=== PATIENT | female | born 1970 | race African-American/Black ===

== ENCOUNTER 2020-02-27 07:12 | Day surgery (SDC) | payer BC ==
--- OUTSIDE RECORDS SUMMARY | 2020-02-27 07:19 | XMS REPORT | Clinical Summary ---
:1970 Author Organization [facility] Address [address] [place] [address] Care Team Providers Name Role Phone Unavailable Primary Care Provider Unavailable Allergies Active Allergy Reactions Severity Noted Date Comments Lisinopril Swelling 04/11/2016 Mirtazapine Hives 04/11/2016 Tramadol Hives 04/11/2016 Medications Medication Sig Dispensed Refills Start Date End Date Status amiodarone (PACERONE) Take 200 mg by 0 Active 200 MG tablet mouth daily. aspirin 81 MG chewable Take 81 mg by 0 Active tablet mouth daily. carvedilol (COREG) 25 Take 25 mg by 0 Active MG tablet mouth 2 (two) times daily with breakfast and dinner. clopidogrel (PLAVIX) 75 Take 75 mg by 0 Active mg tablet mouth daily. cyclobenzaprine Take 10 mg by 0 Active (FLEXERIL) 10 MG tablet mouth 3 (three) times daily as needed for Muscle spasms. HYDROcodone-acetaminoph Take 1 tablet by 0 Active en (NORCO 10-325) mouth every 6 10-325 mg per tablet (six) hours as needed for Pain. LORazepam (ATIVAN) 0.5 Take 0.5 mg by 0 Active MG tablet mouth every 6 (six) hours as needed for Anxiety. glipiZIDE (GLUCOTROL) 5 Take 5 mg by 0 Active MG tablet mouth 2 (two) times daily before meals. Active Problems Problem Noted Date Angio-edema 04/11/2016 Family History Medical History Relation Name Comments Diabetes Father Heart disease Father Hypertension Father Diabetes Mother Heart disease Mother Hypertension Mother Relation Name Status Comments Father Mother Social History Tobacco Use Types Packs/Day Years Used Date Current Every Day Smoker 1 Tobacco Cessation: Ready to Quit: No Alcohol Use Drinks/Week oz/Week Comments No Sex Assigned at Date Recorded Not on file Job Start Date Occupation Industry Not on file Not on file Not on file Travel History Travel Start Travel End No recent travel history available. Last Filed Vital Signs Not on file Plan of Treatment Not on file Results Not on fileafter 02/26/2019 Insurance Payer Benefit Plan / Group Subscriber ID Type Phone A ddress OTHER-COMMERCIAL GENERIC COMMERCIAL xxxxxxxxx (Home) [address] [id number] [place] [address]
--- OUTSIDE RECORDS SUMMARY | 2020-02-27 07:19 | XMS REPORT | Continuity of Care Document ---
:1970 Author Organization [facility] t Address [address] [place] [address] Care Team Providers Name Role Phone Kristie MARTINEZ Attending Clinician Loli CORBIN Attending Clinician Unavailable Loli CORBIN Admitting Clinician Unavailable Problems Condition Condition Condition Status Onset Resolution Last Treating Co mments Source Name Details Category Date Date Treatment Clinician Date Angio-franklin Angio-franklin Disease Active 2015-[address] [facility] Type 2 Type 2 Problem Active [place] diabetes Diabetes da mellitus Mellitus [facility] Tobacco Tobacco Problem Active [facility] dependence Dependence da syndrome Syndrome Medica l Group Essential Essential Problem Active [facility] hypertensi Hypertensi da on on [facility] Acute Acute Problem Active [facility] sinusitis Sinusitis [facility] Peritonsil Peritonsil Problem Active [facility] lar lar da abscess Abscess Medical Group Constipati Constipati Problem Active [facility] Chronic Chronic Problem Active [facility] back pain Back Pain [facility] Fatigue Fatigue Problem Active [facility] Dyspnea Dyspnea Problem Active [facility] Allergies, Adverse Reactions, Alerts Allergy Allergy Status Severity Reaction(s) Onset Inactive Treating Comm ents Source Name Type Date Date Clinician Lisinopr Propensi Active Swelling 2015-[address] [facility] [address] [facility] - adverse [facility]: Medical reaction 00 Center s Mirtazap Drug Active Hives 2015-[address] [facility] [address] ine Allergy 0-18 [facility] 00 [place] Tramadol Drug Active Hives 2015-[address] [facility] [address] [facility]ergy 0[facility] Lisinopr Allergy Active Severe Anaphylaxis 2015-06 [facility] to 0-17 da substanc 00:00: Medical e 00 Group Ultram Allergy Active Itching [place] [facility] e Group Zoloft Allergy Active [place] [facility] Family History Family Member Diagnosis Comments Start Date Stop Date Source Natural father Diabetes [facility] Natural father Heart disease [facility] Natural father Hypertension [facility] Natural mother Diabetes [facility] Natural mother Heart disease [facility] Natural mother Hypertension [facility] Social History Social Habit Start Date Stop Date Quantity Comments Source Sex Assigned At [facility] Cigarettes smoked 2016-04-14 2016-04-14 [facility] - current (pack per 00:00:00 00:00:00 Medical Center day) - Reported Smoking Status Start Date Stop Date Source Heavy Tobacco Smoker Amaury Aceves Current every day smoker 2016-04-14 00:00:00 [facility] Medications Ordered Filled Start Stop Current Ordering Indication Dosage Frequency Signature Comments Components Source Medication Medication Date Date Medication? Clinician (SIG) Name Name glipiZIDE 2015-06 Yes 5mg Take [address] [facility] (GLUCOTROL) 0-18 by mouth 2 Jossie kes - 5 MG tablet 08:39: (two) Medic al 33 times Center daily before meals. amiodarone 2015-06 Yes 200mg QD Take [address] (PACERONE) 0-18 mg by [facility] - 200 MG 08:39: mouth Medical tablet 32 daily. Center aspirin 81 2015-06 Yes 81mg QD Take [address] MG chewable 0-18 by mouth [facility] - tablet 08:39: daily. Medical 32 Center carvedilol 2015-06 Yes 25mg Take [address] (COREG) 25 0-18 by mouth 2 Yohan es - MG tablet 08:39: (two) Medical 32 times Center daily with breakfast and dinner. clopidogrel 2015-06 Yes 75mg QD Take [address] [facility] (PLAVIX) 75 0-18 by mouth [facility] - mg tablet 08:39: daily. Medica l 32 Center cyclobenzap 2015-06 Yes 10mg Take [address] [facility] rine 0-18 by mouth 3 [facility] - (FLEXERIL) 08:39: (three) Medi vito 10 MG 32 times Center tablet daily as needed for Muscle spasms. HYDROcodone 2015-06 Yes 1{tbl} Take [address] -acetaminop 0-18 tablet by Yohan es - hen (NORCO 08:39: mouth Medica l 10-325) 32 every 6 Center 10-325 mg (six) per tablet hours as needed for Pain. LORazepam 2015-06 Yes .5mg Take 0.[address] [facility] (ATIVAN) 0-18 mg by [facility] - 0.5 MG 08:39: mouth Medical tablet 32 every 6 Center (six) hours as needed for Anxiety. Ativan 0.5 Ativan 0.5 No 1 Q1D Ativan 0.5 [facility] mg tablet mg tablet mg tablet da Take 1 Take 1 Take 1 Medical tablet tablet tablet Group every day every day every day by oral by oral by oral route as route as route as needed for needed for needed for 30 days. 30 days. 30 days. atorvastati atorvastati No 1 Q1D atorvastat [place] n 40 mg n 40 mg in 40 mg da tablet Take tablet Take tablet Medical 1 tablet 1 tablet Take 1 Group every day every day tablet by oral by oral every day route at route at by oral bedtime. bedtime. route at bedtime. carvedilol carvedilol No carvedilol [facility] 25 mg 25 mg 25 mg da tablet Take tablet Take tablet Medical 1 tablet(s) 1 tablet(s) Take 1 Group twice a day twice a day tablet(s) by oral by oral twice a route. route. day by oral route. clonidine clonidine No clonidine [facility] HCl 0.1 mg HCl 0.1 mg HCl 0.1 mg da tablet Take tablet Take tablet Medical 1 tablet(s) 1 tablet(s) Take 1 Group every day every day tablet(s) by oral by oral every day route as route as by oral needed. needed. route as needed. cyclobenzap cyclobenzap No cyclobenza [place] rine 10 mg rine 10 mg bart 10 da tablet Take tablet Take mg tablet Medical 1 tablet 1 tablet Take 1 Group twice a day twice a day tablet by oral by oral twice a route as route as day by needed for needed for oral route 30 days. 30 days. as needed for 30 days. fenofibrate fenofibrate No 1 Q1D fenofibrat [facility] 160 mg 160 mg e 160 mg da tablet Take tablet Take tablet Medical 1 tablet 1 tablet Take 1 Group every day every day tablet by oral by oral every day route in route in by oral the morning the morning route in for 90 for 90 the days. days. morning for 90 days. gabapentin gabapentin No 1capsul TID gabapentin [facility] 300 mg 300 mg e(s) 300 mg da capsule capsule capsule Medica l Take 1 Take 1 Take 1 Group capsule 3 capsule 3 capsule 3 times a day times a day times a by oral by oral day by route as route as oral route directed directed as for 30 for 30 directed days. days. for 30 days. isosorbide isosorbide No 1 Q1D isosorbide [facility] mononitrate mononitrate mononitrat da ER 30 mg ER 30 mg e ER 30 mg M edical tablet,exte tablet,exte tablet,ext Group nded nded ended release 24 release 24 release 24 hr Take 1 hr Take 1 hr Take 1 tablet tablet tablet every day every day every day by oral by oral by oral route in route in route in the evening the evening the for 30 for 30 evening days. days. for 30 days. Janumet 50 Janumet 50 No 1 BID Janumet 50 [facility] mg-500 mg mg-500 mg mg-500 mg da tablet Take tablet Take tablet Medical 1 tablet 1 tablet Take 1 Group twice a day twice a day tablet by oral by oral twice a route as route as day by directed. directed. oral route as directed. labetalol labetalol No 1 BID labetalol [facility] 200 mg 200 mg 200 mg da tablet Take tablet Take tablet Medical 1 tablet 1 tablet Take 1 Group twice a day twice a day tablet by oral by oral twice a route as route as day by directed directed oral route for 30 for 30 as days. days. directed for 30 days. meloxicam meloxicam No meloxicam [facility] 7.5 mg 7.5 mg 7.5 mg da tablet tablet tablet Medical Group naproxen naproxen No naproxen [facility] 125 mg/5 mL 125 mg/5 mL 125 mg/5 da oral oral mL oral Medical suspension suspension suspension Group nifedipine nifedipine No 1 Q1D nifedipine [place] ER 90 mg ER 90 mg ER 90 mg da tablet,exte tablet,exte tablet,ext Medical nded nded ended Group release release release Take 1 Take 1 Take 1 tablet tablet tablet every day every day every day by oral by oral by oral route in route in route in the evening the evening the for 30 for 30 evening days. days. for 30 days. Immunizations Ordered Immunization Filled Immunization Date Status Commen ts Source Name Name influenza, influenza, 2015-04-29 Completed [facility] injectable, injectable, 11:55:00 [facility] Grou p quadrivalent, quadrivalent, preservative free preservative free Tdap Tdap 2013-06-25 Completed [facility] 00:00:00 [facility] Group influenza, influenza, 2013-06-25 Completed [facility] injectable, injectable, 00:00:00 [facility] Grou p quadrivalent quadrivalent MMR MMR 2013-06-25 Completed [facility] 00:00:00 [facility] Vital Signs Vital Name Observation Time Observation Value Comments Source BP Diastolic 2018-11-28 00:00:00 101 mm[Hg] [facility] Height 2018-11-28 00:00:00 69 [in_i] [facility] BMI (Body Mass 2018-11-28 00:00:00 29.5 kg/m2 [facility]) Group BP Systolic 2018-11-28 00:00:00 144 mm[Hg] [facility] Body Weight 2018-11-28 00:00:00 3201.6 [oz_av] [facility] Procedures This patient has no known procedures. Plan of Care Planned Activity Planned Date Details Comments Source Instructions [facility] Encounters Start End Encounter Admission Attending Care Care Encounter Source Date/Time Date/Time Type Type Clinicians Facility Department ID 2019-08-17 2019-08-17 Emergency E [facility] [id number] [facility] 18:16:00 18:16:00 2019-02-27 2019-02-27 Telephone Kristie [facility] [id number] 00:00:00 00:00:00 [facility] [id number] Cancer [id number] Center - [id number] [facility] [id number] 2018-11-28 2018-11-28 Russell [facility] [place] - [id number] M [facility] 00:00:00 00:00:00 Discovery delia Manzano PA: [address] [facility] [place], [place] - [address], [facility], [facility] [place] [address] , Ph. 2017-12-20 2017-12-21 Outpatient E SHAQUILLE Angelique [facility] [id number] [place] 22:00:00 02:25:00 [facility] Results Test Description Test Time Test Comments Results Result Comments Source quest collection 2018-11-14 09:48:00 Test Item Value Reference Range Interpretation Comme nts quest collection (test code = quest collection) quest [facility]/O CONTRAST *OW*2017-12-21 00:44:55CT OF THE soft tissue neck without contrastLocation code:[id number] HISTORY:R07.0: PAIN IN THROAT COMPARISON: None available TECHNIQUE: Axial images of the soft tissues of the neck were obtained withoutcontrast. Coronal and sagittal reformatted images were obtained. One or moreof the following dose reduction techniques were used: Automatic exposurecontrol, adjustment of the mA and/or kV according to patient size, and/orutilization of iterative reconstruction technique.FINDINGS: There is abnormal prominence of bilateral palatine tonsillar tissues as well asthe adenoidal tissues. There is narrowing of the nasopharynx and oropharynx.There is prominence of lingual tonsillar tissues. Further asia acterization islimited given lack of intravenous contrast. No obvious fluid collection isidentified to suggest abscess. The parapharyngeal fat is still preserved. Theretropharyngeal fascial plane is maintained.Supraglottic structures including epiglottis, aryepiglottic folds, false focalfolds and para glottic fat are within normal limits. The true vocal folds andsubglottic trachea are unremarkable.Scattered lymph nodes are identified throughout the cervical chain, none ofwhich are pathologic by imaging criteria. Unopacified salivary glands andthyroid gland are grossly within normal limits. The unopacified vascular spaceis unremarkable.Visualized intracranial and intraorbital contents are within normal limits.There is mucosal thickening of bilateral ethmoid air cells. The remainingparanasal sinuses are clear.Visualized thoracic contents are unremarkable.Mild spondylosis is noted in the mid cervical spine particularly at C5-C6 withposterior osteophyte. Partially visualized pacemaker generator and leads areseen.IMPRESSION:1. Abnormal thickening of the bilateral palatine tonsils, lingual tonsils andadenoidal tissues with narrowing of the nasopharynx and oropharynx. Findingsmay represent sequelae of pharyngitis. No obvious abscess is identified onnoncontrast imaging.2. No cervical adenopathy.XR CHEST 1 VIEW PORTABLE *OW*2017-12-20 22:53:42CHEST RADIOGRAPHLOCATION: R16.INDICATION: [id number]: Chest pain.COMPARISON: None.TECHNIQUE: Frontal radiograph of the chest.FINDINGS:A pacemaker generator pack projects over the left mid hemithorax, with its leadtips projecting over the right atrium and right ventricle. No focal airspaceconsolidation or pneumothorax is visualized. The cardiomediastinal silhouetteis normal.IMPRESSION:No acute abnormality in the chest.CHEM8+ i-STAT OW2017-12-20 22:52:00 Test Item Value Reference Range Interpretation Comments SODIUM (test code = LISA) 138 mmol/L 138-146 POTASSIUM (test code = KI) 4.9 mmol/L 3.5-4.9 CHLORIDE (test code = CLI) 105 mmol/L 98-109 CA IONIZED (test code = ICAI) 1.16 mmol/L 1.12-1.32 GLUCOSE (test code = GLUI) 129 mg/dL 75-100 H TCO2 (test code = TCO2) 24 mmol/L 24-29 BUN (test code = BUN1) 26 mg/dL 8-26 CREATININE (test code = CREAI) 0.8 mg/dL 0.6-1.3 ANION GAP (test code = GANG) 15.0 mmol/L TROPONIN I i-STAT OW2017-12-20 22:50:00 Test Item Value Reference Range Interpretation Comments TROPONIN I (test code = A84) 0.010 ng/mL 0.000-0.045 CBC (INCLUDES AUTOMATED DIFFERENTIAL) *2017-12-20 22:40:00 Test Item Value Reference Range Interpretation Comments WBC (test code = WBC) 16.8 10\S\3/uL 4.5-11.0 H RBC (test code = RBC) 4.90 10\S\6/uL 4.20-5.60 HGB (test code = HBG) 14.9 g/dL 12.0-15.5 HCT (test code = HCT) 46.0 % 35.0-44.0 H MCV (test code = MCV) 93.9 fL 81.0-99.0 MCH (test code = MCH) 30.4 pg 27.0-31.0 MCHC (test code = MCHC) 32.4 g/dL 32.0-36.0 RDW (test code = RDW) 12.5 % 11.5-14.5 PLT (test code = PLT) 113 10\S\3/uL 130-400 L MPV (test code = MPV) 8.3 fL 9.4-12.4 L NEUTROP # (test code = NE#) 13.3 10\S\3/uL 1.6-8.0 H LYMPH # (test code = LY#) 2.7 10\S\3/uL 1.1-3.5 MID # (test code = GMID#) 0.9 10\S\3/uL 0.0-1.1 GRA % (test code = GRA%) 79.0 % 35.0-73.0 H LYMPH % (test code = GLY%) 15.9 % 20.0-55.0 L MID % (test code = GMID%) 5.1 % 0.0-10.0
[2020-02-27] MEDS ORDERED: CEFAZOLIN/SWI 1gm 1 GM/10 ML SYR ONE (07:35)
[2020-02-27] MEDS ORDERED: Ringers Lactate 1,000 ML IV ONE (07:35)
[2020-02-27] MEDS ORDERED: LIDOCAINE 1% MPF 5 ML VIAL ONE (07:46)
[2020-02-27] MEDS ORDERED: propofoL 200 MG/20 ML VIAL IV ONE (07:46)
[2020-02-27] MEDS ORDERED: MIDAZOLAM HCL 2 MG/2 ML INJ ONE (07:46)
[2020-02-27] MEDS ORDERED: FENTANYL CITR 100 MCG/2 ML ONE (07:46)
[2020-02-27] MEDS ORDERED: LIDOCAINE 1% W/EPI 1:100,000 MDV 20 ML VIAL ONE (08:08)
[2020-02-27] MEDS ORDERED: ONDANSETRON 4 MG/2 ML VIAL ONE (09:04)
[2020-02-27] MEDS ORDERED: KETOROLAC 30 MG/ML INJ ONE (09:04)
[2020-02-27] MEDS ORDERED: dexAMETHasone 10 MG/ML VIAL ONE (09:04)
[2020-02-27] MEDS ORDERED: LABETALOL 20 MG/4ML SYRINGE IV ONE (09:44)
[2020-02-27] MEDS: HYDROMORPHONE HCL 1 MG/ML INJ ONE ×3 (09:46→10:00)
[2020-02-27 10:03] VITALS: TEMP 97.1; O2SAT 94
[2020-02-27] MEDS ORDERED: HYDROMORPHONE HCL 1 MG/ML INJ ONE (10:11)
[2020-02-27] MEDS ORDERED: ACETAMINOPHEN 325 MG TABLET ONE (10:34)
[2020-02-27 12:20] VITALS: BP 159/98
--- NOTE | 2020-02-27 13:29 | P.BOP ---
Preoperative diagnosis: chronic cervical lymphadenitis Postoperative diagnosis: same Primary procedure: open deep cervical lymph node biopsy Retail Key Holder: NONE,NONE Estimated blood loss: <5ml Specimen: level 2 right lymph nodes, fresh Findings: 1.5 - [address], red, fleshy appearance Anesthesia: General Complications: None Implants: none Fluids & blood products: crystalloid Transferred to: Recovery Room Condition: Good
--- NOTE | 2020-02-27 23:04 | OP ---
Date of Procedure: 02/27/2020 Surgeon: Mercy James MD Preoperative Diagnosis: Chronic cervical lymphadenitis. Postoperative Diagnoses: Chronic cervical lymphadenitis, pathology pending. Procedure: Open excisional biopsy of deep cervical lymph nodes. Indication For Procedure: Ms. Ortiz presented with a 2 year history of enlarged lymph nodes and f luctuating, but severe to moderate persistent pain in the area of the enlarged lymph nodes. The risk s, benefits, and alternatives to the procedure were discussed in detail with the patient including fa ilure to resolve her pain. She agreed to proceed. Procedure In Detail: The patient was brought to the operating room. She was placed under general an esthesia via oral endotracheal tube. The head of bed was angled approximately 45 degrees to [address] ter exposure to the right neck. A shoulder roll was placed and the planned incision site with an exi sting neck crease was injected with 1% lidocaine with epinephrine. The neck was prepped with Betadin e and draped in a sterile fashion. A 2.5 cm incision was made through the skin and subcutaneous tiss ues using a 15-blade scalpel. The Bovie electrocautery was used to obtain hemostasis at the skin edg es and to dissect through the subcutaneous fat. The platysma muscle was identified and divided using the LigaSure. Subplatysmal flaps were developed superior and inferior to the incision. The anterio r border of the sternocleidomastoid muscle was identified and carefully dissected. The sternocleidom astoid muscle was then retracted laterally revealing a 1.5 cm to 2 cm lymph node, which appeared red and fleshy and relatively soft. The inferior aspect of the lymph node was grasped and the ligature a nd Silva dissector was used to free the lymph node from surrounding soft tissue attachments. At the anterior deep aspect, there was a large blood vessel, which was protected and not violated. After r emoval of the lymph node, the area was inspected. At the superolateral aspect of the surgical site, a second lymph node was noted. It was bluntly dissected using a peanut sponge. The lymph node was t hen grasped at its inferior aspect and the Silva dissector and LigaSure were used to free it from hernandez rrounding soft tissue attachments. Both lymph nodes were sent to pathology as a fresh specimen for p athologic evaluation. Clinical suspicion for lymphoma is very low given the appearance and duration of the lymph nodes. The surgical site was inspected. There was no significant bleeding. A drain wa s not necessary. The incision was then closed in a layered fashion. The platysmal and deep dermal l rodriguez were approximated using interrupted 4-0 Vicryl sutures. The skin was then closed with Dermabon d. The skin was cleaned and dried, and the patient was returned to care of Anesthesia for awakening and extubation in the operating room, which proceeded without difficulty. Disposition: The patient will be discharged home later today and follow up with Dr. James on mber 8 for preop assessment and release to work. DAISY/ZHANNA Voice ID: [id number] Report ID: [id number]
== END 2020-02-27 10:45 | disposition home or self-care (01) ==
LOC: OR 07:12
PROVIDERS: ATTEND Otolaryngology
PROC: 07B10ZX Excision of Right Neck Lymphatic, Open Approach, Diagnostic (ICD-10-PCS; principal; 2020-02-27 08:30)
DX: I88.1 Chronic lymphadenitis, except mesenteric (principal); D76.3 Other histiocytosis syndromes; I10 Essential (primary) hypertension; I25.2 Old myocardial infarction; F17.200 Nicotine dependence, unspecified, uncomplicated; Z79.899 Other long term (current) drug therapy
CPT/HCPCS: 38510; 88161; 88305; 87015; 87206; 87116; 87102; J2704; J2250; J3010; J1100; J1170 ×2; J0690; J7120; J2405

== ENCOUNTER 2023-12-15 17:29 | Inpatient (IN) | payer BC, OTHER ==
[2023-12-15] MEDS ORDERED: ONDANSETRON 4 MG/2 ML VIAL ONE ×2 (18:32→23:02)
[2023-12-15] MEDS ORDERED: MORPHINE 4 MG/ML SYR ONE ×2 (18:33→20:49)
[2023-12-15 18:36] LABS: Absolute Basophils 0.1 K/uL (0-0.5); Absolute Eosinophils 0.1 K/uL (0-0.5); Absolute Lymphocytes (CBC) 1.5 K/uL (0.7-4.9); Absolute Neutrophil 2.1 K/uL (1.8-8.0); Basophils % 1.1 % (0-1.3); Eosinophils % 2.1 % (0-4.4); Hematocrit 43.3 % (36.0-45.0); Lymphocytes % 31.5 % (15.3-44.8); MCHC 32.3 g/dL (32.0-36.0); MCV 92.8 fL (80-100); MPV 8.4 fL (7.6-11.3); Neutrophils % 44.3 % (41.7-73.7); Nucleated Red Blood Cells % 0.1 % (0-0); Platelets 221 thou/uL (152-406); RBC Red Blood Cell Count 4.66 M/uL (3.86-4.86); Red Cell Distribution Width 13.8 % (12.1-15.2)
[2023-12-15 18:59] LABS: ALT/SGPT 18 U/L (13-56); AST/SGOT 14 U/L (15-37); Albumin 3.3 g/dL (3.4-5.0); Albumin/Globulin Ratio 0.7 (1.1-1.8); Alkaline Phosphatase 82 U/L (45-117); BUN Blood Urea Nitrogen 35 mg/dL (7-18); Bicarbonate 29 mEq/L (21-32); Bilirubin Total 0.6 mg/dL (0.2-1.0); Glomerular Filtration Rate 37 ml/min (=/>90); Glucose Level 91 mg/dL (74-106); Magnesium 2.1 mg/dL (1.6-2.4); NT PRO-BNP 3635 pg/mL (<125); Protein, Total 8.3 g/dL (6.4-8.2); Sodium Level 138 mEq/L (136-145)
[2023-12-15 19:08] LABS: Bilirubin Direct < 0.2 mg/dL (0-0.2); Bilirubin Indirect, Calculated 0.4 mg/dL (0.2-0.8)
--- NOTE | 2023-12-15 19:12 | RAD REPORT ---
EXAM DESCRIPTION: CT - Head Brain Wo Cont - 12/15/2023 6:49 pm CLINICAL HISTORY: HEADACHE COMPARISON: No comparisons TECHNIQUE: Noncontrast head CT images were obtained without IV contrast. Multiplanar reformats were generated and reviewed. All CT scans are performed using dose optimization technique as appropriate and may include automated exposure control or mA/KV adjustment according to patient size. FINDINGS: No intracranial hemorrhage, mass, or edema. Midline structures are unremarkable. Normal ventricular caliber for age. Corcoran-white matter differentiation is preserved, without evidence of acute infarct. No abnormal extra- axial fluid collections. Mastoid air cells and visualized portions of the paranasal sinuses are clear. No acute bony findings. IMPRESSION: No evidence of an acute intracranial process.
--- NOTE | 2023-12-15 19:12 | RAD REPORT ---
EXAM DESCRIPTION: Kathy Single View12/15/2023 6:52 pm CLINICAL HISTORY: CHEST PAIN COMPARISON: No comparisons TECHNIQUE: Portable AP view of the chest. FINDINGS: Mild central interstitial prominence, may suggest central congestive changes. Left chest w all pacer in place. No pneumothorax or effusion. Moderate cardiomegaly. Mediastinal contours are unre markable. IMPRESSION: Findings suggesting central congestion/ CHF.
--- NOTE | 2023-12-15 20:24 | ER ---
Nurse's Notes [facility] Name: Mima Ortiz Age: 53 yrs Sex: Female : 1970 Arrival Date: 12/15/2023 Time: 17:29 Bed 18 Private MD: Diagnosis: Presentation: 12/14 17:38 Chief complaint: EMS states: Chest pain, SOB, and nausea that started while gambling. hb Hx of CA in Jul. 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 Not compliant with her Eliquis. Coronavirus screen: At this time, the client does not indicate any symptoms associated with coronavirus-19. Ebola Screen: No symptoms or risks identified at this time. Initial Sepsis Screen: Does the patient meet any 2 criteria? No. Patient's initial sepsis screen is negative. Does the patient have a suspected source of infection? No. Patient's initial sepsis screen is negative. Risk Assessment: Do you want to hurt yourself or someone else? Patient reports no desire to harm self or others. Onset of symptoms was December 15, 2023. 17:38 Method Of Arrival: EMS[facility] hb 17:38 Acuity: FERN 2 hb Triage Assessment: 17:42 General: Appears in no apparent distress. Behavior is calm, cooperative. Pain: Pain hb currently is 3 out of 10 on a pain scale. at worst was 8 out of 10 on a pain scale. Neuro: Level of Consciousness is awake, alert, obeys commands, Oriented to person, place, time, situation. Cardiovascular: Reports chest pain, nausea, shortness of breath, Rhythm is regular. Respiratory: Respiratory effort is even, unlabored, Respiratory pattern is regular, symmetrical. Historical: - Allergies: 17:41 Lisinopril; hb 17:41 tramadol; hb - PMHx: 17:42 CA; CVA; Hypertension; hb - Immunization history:: Adult Immunizations up to date. - Infectious Disease History:: Denies. - Social history:: Smoking status: Patient reports the use of cigarette tobacco products, smokes one-half pack cigarettes per day. - Family history:: not pertinent. Screenin:30 [facility] ED Fall Risk Assessment (Adult) History of falling in the last 3 months, nj1 including since admission No falls in past 3 months (0 pts) Confusion or Disorientation No (0 pts) Intoxicated or Sedated No (0 pts) Impaired Gait No (0 pts) Mobility Assist Device Used No (0 pt) Altered Elimination No (0 pt) Score/Fall Risk Level 0 - 2 = Low Risk Oriented to surroundings, Maintained a safe environment, Hourly rounding (assess needs \\T\\ fall precautionary measures) done. 18:30 Abuse screen: Denies threats or abuse. Denies injuries from another. Nutritional nj1 screening: No deficits noted. Tuberculosis screening: No symptoms or risk factors identified. Assessment: 18:30 General: Appears in no apparent distress. uncomfortable, Behavior is calm. nj1 18:30 Pain: Complains of pain in chest. nj1 18:30 Cardiovascular: Reports chest pain, shortness of breath, Patient's skin is warm and nj1 dry. Rhythm is sinus rhythm. Respiratory: Airway is patent Respiratory effort is even, unlabored. 19:00 General: Appears in no apparent distress. uncomfortable, Behavior is calm, cooperative, jw7 appropriate for age. Pain: Complains of pain in chest Pain does not radiate. Pain currently is 8 out of 10 on a pain scale. Quality of pain is described as pressure, Pain began suddenly, Is continuous. Neuro: Level of Consciousness is awake, alert, obeys commands, Oriented to person, place, time, situation, Appropriate for age. Cardiovascular: Reports chest pain, shortness of breath, Heart tones S1 S2 present Capillary refill < 3 seconds Clubbing of nail beds is absent JVD is absent Patient's skin is warm and dry. Rhythm is sinus rhythm. Respiratory: Airway is patent Trachea midline Respiratory effort is even, unlabored, Respiratory pattern is regular, symmetrical. GI: Abdomen is round non-distended, Bowel sounds present X 4 quads. Abd is soft and non tender X 4 quads. : No deficits noted. No signs and/or symptoms were reported regarding the genitourinary system. EENT: No deficits noted. No signs and/or symptoms were reported regarding the EENT system. Derm: Skin is intact, is healthy with good turgor, Skin is dry, Skin is normal, Skin temperature is warm. Musculoskeletal: Circulation, motion, and sensation intact. Range of motion: intact in all extremities. 20:00 Reassessment: Patient appears in no apparent distress at this time. No changes from jw7 previously documented assessment. Patient and/or family updated on plan of care and expected duration. Pain level reassessed. Patient is alert, oriented x 3, equal unlabored respirations, skin warm/dry/pink. 21:00 Reassessment: Patient appears in no apparent distress at this time. Patient and/or jw7 family updated on plan of care and expected duration. Pain level reassessed. Patient is alert, oriented x 3, equal unlabored respirations, skin warm/dry/pink. Patient states feeling better. 22:00 Reassessment: Patient appears in no apparent distress at this time. No changes from jw7 previously documented assessment. Patient and/or family updated on plan of care and expected duration. Pain level reassessed. Patient is alert, oriented x 3, equal unlabored respirations, skin warm/dry/pink. 22:30 Reassessment: Patient appears in no apparent distress at this time. Patient and/or jw7 family updated on plan of care and expected duration. Pain level reassessed. Patient is alert, oriented x 3, equal unlabored respirations, skin warm/dry/pink. Patient states symptoms have not improved. 22:30 General: Pt requested to leave AMA, stated "I don't want to stay here, I prefer to go [facility] home now", Provider Notified. . 22:40 General: Dr. Orantes at bedside. . [facility] 22:40 General: Requested Patient wait to leave until administration of medications per [facility] Provider, Patient agreed to receive medications before leaving. . 22:45 General: Medications given per [facility] Orders.. [facility] 23:00 Reassessment: Patient appears in no apparent distress at this time. Patient and/or [facility] family updated on plan of care and expected duration. Pain level reassessed. Patient is alert, oriented x 3, equal unlabored respirations, skin warm/dry/pink. 23:33 Reassessment: Patient appears in no apparent distress at this time. No changes from [facility] previously documented assessment. Patient and/or family updated on plan of care and expected duration. Pain level reassessed. Vital Signs: 17:38 BP 143 / 90; Pulse 89; Resp 16; Temp 97.8(TE); Pulse Ox 100% on R/A; Weight 100.24 kg; hb Height 5 ft. 5 in. ; Pain 3/10; 19:30 BP 135 / 102; Pulse 87; Resp 15 S; Pulse Ox 95% on R/A; jw7 20:30 BP 151 / 109; Pulse 90; Resp 21 S; Pulse Ox 98% on R/A; jw7 21:30 BP 147 / 107; Pulse 85; Resp 24 S; Pulse Ox 95% on R/A; jw7 22:30 BP 146 / 102; Pulse 74; Resp 23 S; Pulse Ox 96% on R/A; jw7 23:30 BP 147 / 104; Pulse 88; Resp 22 S; Temp 98.2(O); Pulse Ox 95% on R/A; jw7 17:38 Body Mass Index 36.78 (100.24 kg, 165.1 cm) hb 17:38 Pain Scale: Adult hb ED Course: 17:37 Patient arrived in ED. bc6 17:40 Triage completed. hb 17:40 Arian Tony PA is PHCP. cp 17:42 Jacqueline Landry, BHASKAR is Primary Nurse. nj1 17:44 Arm band placed on. hb 17:50 Osiel De La Cruz MD is Attending Physician. rt 18:25 Inserted saline lock: Ultrasound guided. Catheter tip well visualized within nj1 vasculature during placement. 18:30 Patient has correct armband on for positive identification. Bed in low position. Call nj1 light in reach. Side rails up X 1. Adult w/ patient. Client placed on continuous cardiac and pulse oximetry monitoring. NIBP monitoring applied. puller through on. 18:50 CT Head Brain wo Cont In Process Unspecified. EDMS 18:54 XRAY Chest (1 view) In Process Unspecified. EDMS 18:59 Attending Physician role handed off by Osiel De La Cruz MD ec2 18:59 Chacho Guillory MD is Attending Physician. ec2 20:23 Arsh Orantes MD is Hospitalizing Provider. ec2 21:06 Troponin High Sensitivity Sent. jw7 21:13 EKG done, by ED staff, reviewed by Chacho Guillory MD. oe 23:30 No provider procedures requiring assistance completed. IV discontinued, intact, jw7 bleeding controlled, No redness/swelling at site. Pressure dressing applied. O2 via RA. Administered Medications: 18:39 Drug: Ondansetron IVP 4 mg IVP once; over 2 minutes Route: IVP; Site: left antecubital; hb 23:36 Follow up: Response: No adverse reaction; Marked relief of symptoms jw7 18:40 Drug: morphine IVP or IV 4 mg IVP once over 4 mins Route: IVP; Infused Over: 4 mins; hb Site: left antecubital; 23:36 Follow up: Response: No adverse reaction; Marked relief of symptoms jw7 20:55 Drug: morphine IVP or IV 4 mg IVP once over 4 mins Route: IVP; Infused Over: 4 mins; jw7 Site: left antecubital; 23:36 Follow up: Response: No adverse reaction; Marked relief of symptoms jw7 Outcome: 20:23 Decision to Hospitalize by Provider. ec2 23:30 AMA AMA form signed jw7 23:30 Condition: stable 23:30 Instructed on follow up and referral plans. Demonstrated understanding of instructions, 23:35 Patient left the ED. jw7 Signatures: Dispatcher [employer] EDMS Arian Tony PA PA cp Ania Fowler RN RN hb Damon Guadarrama oe Lori Bolanos RN RN jw7 Osiel De La Cruz MD MD rt Mirela Contreras 6 Jacqueline Landry RN RN nj1 Chacho Guillory MD MD ec2 Corrections: (The following items were deleted from the chart) 17:42 17:38 Chief complaint: EMS states: Chest pain, SOB, and nausea that started while hb gambling. Hx of CA in Jul. 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 hb
--- NOTE | 2023-12-15 20:24 | EDPHYS ---
Physician Documentation [facility] Name: Mima Ortiz Age: 53 yrs Sex: Female : 1970 Arrival Date: 12/15/2023 Time: 17:29 Bed 18 Private MD: ED Physician Chacho Guillory HPI: 12/14 18:23 This 53 yrs old Black Female presents to ER via EMS with complaints of Chest Pain. rt 18:24 Patient presents to the ED with chest pain that she describes as a palpitations rt starting this morning when she was sleeping. Reports shortness of breath, nausea. Patient was reports a headache. She states that many years ago, she had which described as a stroke but was placed on blood thinners for "clot." States that she has not been on her Eliquis for about 3 months. The patient also reports that she had an ID and had a defibrillator placed 7 months ago. States the symptoms feel similar. Denies other acute complaints at this time, symptoms are moderate in severity, no other aggravating or alleviating factors.. Historical: - Allergies: 17:41 Lisinopril; hb 17:41 tramadol; hb - PMHx: 17:42 ID; CVA; Hypertension; hb - Immunization history:: Adult Immunizations up to date. - Infectious Disease History:: Denies. - Social history:: Smoking status: Patient reports the use of cigarette tobacco products, smokes one-half pack cigarettes per day. - Family history:: not pertinent. ROS: 18:24 Constitutional: Negative for fever, chills, and weight loss, MS/Extremity: Negative for rt injury and deformity, Skin: Negative for injury, rash, and discoloration, 18:24 Cardiovascular: Positive for chest pain, palpitations, 18:24 Respiratory: Positive for shortness of breath, Negative for cough, 18:24 Abdomen/GI: Positive for nausea, Negative for abdominal pain, 18:24 Neuro: Positive for headache, Negative for altered mental status, Exam: 18:24 Constitutional: This is a well developed, well nourished patient who is awake, alert, rt and in no acute distress. Head/Face: Normocephalic, atraumatic. Chest/axilla: Normal chest wall appearance and motion. Nontender with no deformity. No lesions are appreciated. Cardiovascular: Regular rate and rhythm with a normal S1 and S2. No gallops, murmurs, or rubs. Normal PMI, no JVD. No pulse deficits. Respiratory: Lungs have equal breath sounds bilaterally, clear to auscultation and percussion. No rales, rhonchi or wheezes noted. No increased work of breathing, no retractions or nasal flaring. Abdomen/GI: Soft, non-tender, with normal bowel sounds. No distension or tympany. No guarding or rebound. No evidence of tenderness throughout. Skin: Warm, dry with normal turgor. Normal color with no rashes, no lesions, and no evidence of cellulitis. MS/ Extremity: Pulses equal, no cyanosis. Neurovascular intact. Full, normal range of motion. Neuro: Awake and alert, GCS 15, oriented to person, place, time, and situation. Cranial nerves II-XII grossly intact. Motor strength 5/5 in all extremities. Sensory grossly intact. Cerebellar exam normal. Normal gait. 18:24 ECG was reviewed by the Attending Physician. Vital Signs: 17:38 BP 143 / 90; Pulse 89; Resp 16; Temp 97.8(TE); Pulse Ox 100% on R/A; Weight 100.24 kg; hb Height 5 ft. 5 in. ; Pain 3/10; 19:30 BP 135 / 102; Pulse 87; Resp 15 S; Pulse Ox 95% on R/A; jw7 20:30 BP 151 / 109; Pulse 90; Resp 21 S; Pulse Ox 98% on R/A; jw7 21:30 BP 147 / 107; Pulse 85; Resp 24 S; Pulse Ox 95% on R/A; jw7 22:30 BP 146 / 102; Pulse 74; Resp 23 S; Pulse Ox 96% on R/A; jw7 23:30 BP 147 / 104; Pulse 88; Resp 22 S; Temp 98.2(O); Pulse Ox 95% on R/A; jw7 17:38 Body Mass Index 36.78 (100.24 kg, 165.1 cm) hb 17:38 Pain Scale: Adult hb MDM: 17:52 Patient medically screened. rt 19:07 Data reviewed: vital signs. ED course: Patient with history of ACS, or today for ec2 evaluation of chest pain. Plan to follow-up lab work, CT imaging and reassess the patient clinically. Patient received aspirin prior to arrival.. 19:33 ED course: Metabolic profile shows appropriate electrolytes and diminished renal ec2 function with a creatinine of 1.64 and a GFR of 37. CBC is reassuring, LFTs are unremarkable, BNP is slightly elevated at 3600, troponin is within normal ranges, chest x-ray shows some vascular congestion. CT scan of the head shows no acute intracranial abnormality. . 20:22 ED course: On reassessment patient complains of recurrent chest pain, will give the ec2 patient additional morphine and admit the patient for chest pain given the patient's risk factors. Discussed case with hospitalist, pending admission.. 20:36 ED course: MDM: Differential diagnosis as documented above in ED course; All lab tests ec2 ordered and reviewed as documented above; Parenteral controlled substances: Yes; Discuss inpatient hospitalization: Yes; I discussed the case with: Hospitalist . 12/14 18:00 Order name: Basic Metabolic Panel; Complete Time: 19:33 rt 12/14 18:00 Order name: CBC with Diff rt 12/14 18:00 Order name: LFT's; Complete Time: 19:33 rt 12/14 18:00 Order name: Magnesium; Complete Time: 19:33 rt 12/14 18:00 Order name: NT PRO-BNP; Complete Time: 19:33 rt 12/14 18:00 Order name: Troponin HS; Complete Time: 19:33 rt 12/14 19:54 Order name: Troponin High Sensitivity ec2 12/14 20:51 Order name: CBC Smear Scan EDMS 12/14 21:04 Order name: CBC with Automated Diff EDMS 12/14 21:04 Order name: CBC with Automated Diff EDMS 12/14 21:04 Order name: Comprehensive Metabolic Panel EDMS 12/14 21:04 Order name: Comprehensive Metabolic Panel EDMS 12/14 18:00 Order name: XRAY Chest (1 view); Complete Time: 19:33 rt 12/14 18:00 Order name: CT Head Brain wo Cont; Complete Time: 19:33 rt 12/14 18:00 Order name: EKG; Complete Time: 18:01 rt 12/14 18:00 Order name: Cardiac monitoring; Complete Time: 18:02 rt 12/14 18:00 Order name: EKG - Nurse/Tech; Complete Time: 18:02 rt 12/14 18:00 Order name: IV Saline Lock; Complete Time: 18:26 rt 12/14 18:00 Order name: Labs collected and sent; Complete Time: 18: rt 12/14 18:00 Order name: O2 Per Protocol; Complete Time: 18:03 rt 12/14 18:00 Order name: O2 Sat Monitoring; Complete Time: 18:03 rt 12/14 19:54 Order name: EKG - Nurse/Tech; Complete Time: 21:06 ec2 12/14 19:54 Order name: Misc. Order: repeat ekg/trop; Complete Time: 21:06 ec2 EC:24 Rate is 98 beats/min. Rhythm is regular, Normal Sinus Rhythm with No ectopy. Left axis rt deviation noted. VA interval is normal. QRS interval is normal. QT interval is normal. No Q waves. Clinical impression: NSR w/ Non-specific ST/T Changes. Administered Medications: 18:39 Drug: Ondansetron IVP 4 mg IVP once; over 2 minutes Route: IVP; Site: left antecubital; 23:36 Follow up: Response: No adverse reaction; Marked relief of symptoms jw7 18:40 Drug: morphine IVP or IV 4 mg IVP once over 4 mins Route: IVP; Infused Over: 4 mins; hb Site: left antecubital; 23:36 Follow up: Response: No adverse reaction; Marked relief of symptoms jw7 20:55 Drug: morphine IVP or IV 4 mg IVP once over 4 mins Route: IVP; Infused Over: 4 mins; jw7 Site: left antecubital; 23:36 Follow up: Response: No adverse reaction; Marked relief of symptoms jw7 Disposition Summary: 12/15/23 23:29 Left Against Medical Advice Notes: Location: Home(12/15/23 23:29) as6 Condition: Stable(12/15/23 23:29) as6 Signatures: Dispatcher [employer] Aimee Saini RN RN Ania Fowler RN RN James Gan RN RN as6 Lori Bolanos RN RN jw7 Osiel De La Cruz MD MD rt Chacho Guillory MD MD ec2 Corrections: (The following items were deleted from the chart) 18:01 18:01 BASIC METABOLIC PANEL+C.LAB.BRZ ordered. EDMS EDMS 18:01 18:01 CBC+H.LAB.BRZ ordered. EDMS EDMS 18:01 18:01 HEPATIC FUNCTION+C.LAB.BRZ ordered. EDMS EDMS 18:01 18:01 MAGNESIUM+C.LAB.BRZ ordered. EDMS EDMS 18:01 18:01 PROBNP+C.LAB.BRZ ordered. EDMS EDMS 18:01 18:01 Troponin High Sensitivity+C.LAB.BRZ ordered. EDMS EDMS 18:01 18:01 Head Brain Wo Cont+CT.RAD.BRZ ordered. EDMS EDMS 22:57 20:23 ec2 cg 23:28 22:57 205 cg as6 23:29 20:23 Inpatient Admission ec2 as6 23:29 20:23 Arsh Orantes ec2 as6 23:29 20:23 Telemetry/MedSurg (Inpatient) ec2 as6 23:29 20:23 Stable ec2 as6 23:29 20:23 an acute exacerbation ec2 as6 23:29 20:23 have improved ec2 as6 23:29 20:23 Standard ec2 as6 23:29 20:23 Chest pain, unspecified ec2 as6 23:29 23:28 as6 as6
[2023-12-15 20:51] LABS: Blood Morphology Comment NOT SEEN (NOT SEEN); Platelet Estimate ADEQ; White Blood Cell Scan OK (OK)
[2023-12-15] MEDS ORDERED: ALBUTEROL 2.5 MG/3 ML NEB SOL NEB PRN (20:57)
[2023-12-15] MEDS ORDERED: MORPHINE 4 MG/ML SYR IV PRN (20:57)
[2023-12-15] MEDS ORDERED: ACETAMINOPHEN 500 MG TAB PO PRN (20:57)
[2023-12-15] MEDS: METHYLPREDNISOLONE 40 MG INJ IV SCH (21:01)
[2023-12-15] MEDS ORDERED: NITROGLYCERIN 0.4 MG/TAB SL PRN (21:01)
[2023-12-15] MEDS ORDERED: DULERA 200/5 (MOMETASONE/FORMOTEROL) INHALER IH SCH (21:02)
[2023-12-15] MEDS ORDERED: carvediloL 25 MG TAB PO SCH (21:03)
--- NOTE | 2023-12-15 21:05 | P.HP ---
Certification for Inpatient With expected LOS: >2 Midnights Practitioner: I am a practitioner with admitting privileges, knowledge of patient current condition, hospital course, and medical plan of care. Services: Services provided to patient in accordance with Admission requirements found in Title 42 Section 412.3 of the Code of Federal Regulations Patient History Date of Service: 12/15/23 Reason for admission: Breath chest discomfort dizziness History of Present Illness: This 53 years of age was here shopping for a car developed sudden onset of dizziness chest discomfort blacked out has a history of COPD recent coronary angiogram done by Dr. Noriega the behavioral health associate in [place] have any stents history of [place] and a stroke heavy smoker over a pack a day use albuterol at home also has a defibrillator Allergies lisinopril Allergy (Verified 02/24/20 11:02) Anaphylaxis tramadol Allergy (Verified 02/24/20 11:02) Rash Home Medications: Carvedilol [Coreg] 25 mg PO BID 02/24/20 Cyclobenzaprine [Flexeril] 10 mg PO DAILY 02/24/20 Hydrocodone 7.5/APAP 325 [[place] 7.5/325 mg] 1 tab PO TID 02/24/20 LORazepam [Ativan] 0.5 mg PO PRN PRN 02/24/20 - Past Medical/Surgical History -: COPD -: Stroke Physical Examination - Vital Signs Temperature: 97.8 F Blood Pressure: 143/90 Pulse: 89 Respirations: 16 Pulse Ox (%): 100 - Physical Exam General: Alert, In no apparent distress, Oriented x3 HEENT: Atraumatic Neck: Supple Respiratory: Diminished, Expiratory wheezes Cardiovascular: No edema, Regular rate/rhythm, Normal S1 S2 Gastrointestinal: Normal bowel sounds, Soft and benign Musculoskeletal: No clubbing, No swelling Integumentary: No rashes, No breakdown Neurological: Normal speech, Normal strength at 5/5 x4 extr - Studies Laboratory Data (last 24 hrs) 12/15/23 12/15/23 18:25 18:25 WBC 4.80 Hgb 14.0 Hct 43.3 Plt Count 221 Sodium 138 Potassium 4.0 BUN 35 H Creatinine 1.64 H Glucose 91 Magnesium 2.1 Total Bilirubin 0.6 AST 14 L ALT 18 Alkaline Phosphatase 82 Assessment and Plan - Problems (Diagnosis) (1) COPD exacerbation Current Visit: Yes Status: Acute Plan: Is 53 years of age with a history of COPD active smoker coronary artery disease although cardiac cath done by Dr. Noriega in [place] according to the patient's daughter did not find any evidence of coronary artery disease history of [place] defibrillator placed feeling dizzy short of breath chest discomfort uses only nebulizers at home EKG is normal troponins are negative labs reviewed creatinine is mildly elevated x-ray shows cardiomegaly alcohol abuse no does not use any oxygen at home admit to the hospital out [place] serial troponins start on bronchodilators steroids - Advance Directives Does patient have a Living Will: No Does patient have a Durable POA for Healthcare: No
[2023-12-15] MEDS ORDERED: ASPIRIN EC 81 MG TAB PO SCH (21:09)
[2023-12-15] MEDS ORDERED: Oxycodone HCl/Acetaminophen 5/325 MG TAB PO PRN (21:55)
[2023-12-15] MEDS ORDERED: ALBUTEROL 2.5 MG/3 ML NEB SOL ONE (22:16)
[2023-12-15] MEDS ORDERED: IPRATROPIUM BROM 0.5MG/2.5ML ONE (22:16)
[2023-12-15] MEDS ORDERED: METHYLPREDNISOLONE 40 MG INJ ONE (22:16)
[2023-12-15] MEDS ORDERED: HYDROMORPHONE HCL 1 MG/ML INJ ONE ×2 (22:34→22:56)
[2023-12-15] MEDS: ONDANSETRON 4 MG/2 ML VIAL IV PRN (22:45)
[2023-12-15] MEDS: HYDROMORPHONE HCL 1 MG/ML INJ IV PRN (22:45)
[2023-12-15 23:57] VITALS: BP 147/104; TEMP 98.2; O2SAT 95
[2023-12-16] MEDS ORDERED: IPRATROPIUM BROM 0.5MG/2.5ML NEB SCH (01:00)
--- NOTE | 2023-12-16 13:28 | EKG ---
Test Date: 2023-12-15 Test Time: 17:49:54 Book Coverer: ALIX MEASUREMENT RESULTS: Intervals: Rate: 98 GA: 160 QRSD: 94 QT: 360 QTc: 459 [place]: P: 70 GA: 160 QRS: 3 T: 177 INTERPRETIVE STATEMENTS: Normal sinus rhythm Biatrial enlargement Left ventricular hypertrophy ST & T wave abnormality, consider inferolateral ischemia Abnormal ECG No previous ECG available for comparison Electronically Signed On 12-16-23 13:27:11 CDT by Guero Garcia
--- NOTE | 2023-12-17 13:08 | EKG ---
Test Date: 2023-12-15 Test Time: 20:57:50 Investigations Director: ANILA MEASUREMENT RESULTS: Intervals: Rate: 84 MN: 162 QRSD: 98 QT: 374 QTc: 441 [place]: P: 67 MN: 162 QRS: -1 T: 168 INTERPRETIVE STATEMENTS: Normal sinus rhythm Biatrial enlargement Left ventricular hypertrophy ST & T wave abnormality, consider inferolateral ischemia Abnormal ECG Compared to ECG 12/15/2023 17:49:54 No significant changes Electronically Signed On 12-17-23 13:03:42 CDT by Guero Garcia
== END 2023-12-15 23:30 | disposition left against medical advice (07) | DRG 192 ==
LOC: ER 17:29 → ERHOLD 20:57
PROVIDERS: ADMIT Anesthesiology Pain Medicine; ATTEND Internal Medicine Sleep Medicine
DX: J44.1 Chronic obstructive pulmonary disease with (acute) exacerbation (principal); I10 Essential (primary) hypertension; I25.2 Old myocardial infarction; I25.10 Atherosclerotic heart disease of native coronary artery without angina pectoris; F17.210 Nicotine dependence, cigarettes, uncomplicated; Z88.5 Allergy status to narcotic agent; Z95.5 Presence of coronary angioplasty implant and graft; Z88.8 Allergy status to other drugs, medicaments and biological substances; Z79.02 Long term (current) use of antithrombotics/antiplatelets; Z86.73 Personal history of transient ischemic attack (TIA), and cerebral infarction without residual deficits; Z79.899 Other long term (current) drug therapy; Z95.810 Presence of automatic (implantable) cardiac defibrillator; Z91.148 Patient's other noncompliance with medication regimen for other reason
CPT/HCPCS: 36415; 70450; 71045; 80048; 80076; 83735; 83880; 84484; 85025; 93005; 96374; 96375; 99285; J1170; J2405; J2919; J3535; J7613; J7644